=== PATIENT | male | born 1960 | race Caucasian/White ===

== ENCOUNTER → 2020-06-27 09:29 | Outpatient (CLI) | payer BC, SELFPAY ==
[2020-06-28 16:25] LABS: Covid-19 Nasal PCR Sendout Lex NOT DETECTED
== END ==
PROVIDERS: PCP Family Medicine; Visit Provider Family Medicine
DX: Z03.818 Encounter for observation for suspected exposure to other biological agents ruled out (principal)
CPT/HCPCS: U0004

== ENCOUNTER 2021-01-08 01:34 | Emergency (ER) | payer BC, SELFPAY ==
[2021-01-08 01:36] VITALS: BP 169/96; PULSE 70; RESP 16; TEMP 36.1; O2SAT 98; BMI 40.6
--- NOTE | 2021-01-08 01:51 | CT_ITS ---
PROCEDURE: CT ABDOMEN PELVIS WO CON CLINICAL INDICATION: stone protocol Left flank pain COMPARISON: No exams were available for comparison TECHNIQUE: Axial images obtained with sagittal and coronal reformats. All CT scans at the facility use one or more dose reduction, viz: automated exposure control, ma/kV adjustment per patient size (including targeted exams where dose is matched to indication, i.e. head), or iterative reconstruction technique. FINDINGS: LOWER THORAX: No acute finding ABDOMEN & PELVIS: The liver, spleen, adrenal glands, pancreas, and right kidney are unremarkable. There is moderate stranding of the left perinephric renal fat with mild left hydronephrosis and hydroureter secondary to a 3 mm stone in the distal left ureter approximately 2 cm proximal to the ureterovesical junction. There is mild stranding of the periureteral fat on the left as well. No evidence of appendicitis. No intestinal obstruction or free air. Degenerative changes lumbar spine. IMPRESSION: 3 mm left distal ureteral stone with left-sided hydroureteronephrosis and stranding of the periureteral and perinephric fat Dictated by: Mukesh Arredondo MD 01/08/2021 06:54 Mukesh Arredondo MD in [place] 01/08/2021 06:54
--- NOTE | 2021-01-08 01:59 | HMH.EDGENADL ---
ED Disposition Clinical Impression: Renal colic on left side Disposition: Home, Self-Care Condition on Discharge: Good Instructions: DI for Kidney Stones Additional Instructions: use meds and call pcp and urology this am for follow up Prescriptions: Tamsulosin HCl [Flomax 0.4mg capsule] 0.4 mg PO HS #10 cap Transmission Status: Pending to [facility]/pharmacy #[id number] Referrals: Yvette Bailon MD [Primary Care Provider] - Rylan Blair MD [Staff Physician] - - Critical Care Critical Care Time: No Attestation: On , the high probability of a clinically significant, sudden or life threatening deterioration of the following system(s) required my full and direct attention, intervention and personal management. The time I documented below is in addition to time spent performing reported procedures but includes the following listed in this critical care notation. Medical Decision Making - Medical Records Medical records reviewed: Yes: I reviewed the patient's medical records. - Ben Inquiry Pt receiving controlled substance: No Vital Signs: 01/08/21 01:36 Temperature 97.0 F L Temperature Source Oral Pulse Rate [Right] 70 Respiratory Rate 16 Blood Pressure [Right Arm] 169/96 H Blood Pressure Mean [Right Arm] 120 Blood Pressure Source [Right Arm] Automatic Cuff Blood Pressure Position [Right Arm] Sitting 02 Sat by Pulse Oximetry 98 Oxygen Delivery Method Room Air - Lab Data Lab results reviewed: Yes: I reviewed the patient's lab results. Lab Results 01/08/21 01:50: WBC 10.7, RBC 6.04, Hgb 16.7, Hct 49.8, MCV 82.6, MCH 27.7, MCHC 33.5, RDW 13.5, Plt Count 193, MPV 7.8, Neut % (Auto) 81.8 H, Lymph % (Auto) 12.9, Crane % (Auto) 4.4, Eos % (Auto) 0.6, Baso % (Auto) 0.3, Neut # (Auto) 8.7 H, Lymph # (Auto) 1.4, Crane # (Auto) 0.5, Eos # (Auto) 0.1, Baso # (Auto) 0.0 01/08/21 01:50: Sodium 141, Potassium 4.1, Chloride 108 H, Carbon Dioxide 24, Anion Gap 13.1, BUN 17, Creatinine 0.90, Estimated Creat Clear 172, Estimated GFR 87, Est GFR ( Amer) 105, Glucose 175 H, Calcium 10.1, Total Bilirubin 0.7, AST 29, ALT 29, Alkaline Phosphatase 120, Total Protein 8.0, Albumin 4.5, Globulin 3.5 H, Albumin/Globulin Ratio 1.3, Amylase 59, Lipase 139 01/08/21 01:55: Urine Color Yellow, Urine Appearance Clear, Urine pH 7.5, Ur Specific Sayner 1.025, Urine Protein Negative, Urine Glucose (UA) Negative, Urine Ketones Negative, Urine Blood 1+, Urine Nitrate Negative, Urine Bilirubin Negative, Urine Urobilinogen 0.2, Ur Leukocyte Esterase Negative, Urine RBC 10-20, Urine WBC Occasional, Ur Squamous Epith Cells 3-5, Urine Bacteria 1+ Result diagrams: 01/08/21 01:50 01/08/21 01:50 Orders (Tests/Meds): ED MEDICATIONS Generic Name Dose Route Start Last Admin Trade Name Freq PRN Reason Stop Dose Admin Sodium Chloride 1,000 mls @ 999 mls/hr 01/08/21 02:00 01/08/21 01:58 Sod Chlor 0.9% 1000ml Bag IV 01/08/21 03:00 999 mls/hr .Q1H1M MILO Administration Tamsulosin HCl 0.4 mg 01/08/21 21:00 01/08/21 03:01 Tamsulosin 0.4mg Capsule PO 02/07/21 20:59 0.4 mg HS MILO Administration Discontinued Medications Generic Name Dose Route Start Last Admin Trade Name Freq PRN Reason Stop Dose Admin Ketorolac Tromethamine 30 mg 01/08/21 01:51 01/08/21 01:58 Ketorolac 30mg/Ml Vial IV 01/08/21 01:52 30 mg ONCE ONE Administration Ondansetron HCl 4 mg 01/08/21 01:51 01/08/21 01:58 Ondansetron 4mg/2ml Vial IV 01/08/21 01:52 4 mg ONCE ONE Administration ORDERS Category Date Time Status CT abdomen pelvis wo con Stat Cat Scan 01/08/21 01:51 Taken - CT Data CT Scan: Abdomen, Pelvis Time Received: 03:[address] Reviewed: Yes: I have viewed the radiologist's interpretation Preliminary Findings: Abnormal (3 mm stone lt ) Medical Decision Narrative: doing better will give flomax anbd refer to urology General Adult HPI - General Chief complaint: PAIN Stated complaint: Left side pain with
[2021-01-08 02:00] LABS: Basophils % 0.3 % (0.1-2.0); Eosinophils # 0.1 K/mm3 (0.0-0.4); Eosinophils % 0.6 % (0.1-12.0); Hematocrit 49.8 % (42.0-52.0); Hemoglobin 16.7 g/dL (14.1-18.0); Lymphocytes # 1.4 K/mm3 (0.7-4.5); Lymphocytes % 12.9 % (10-50); Mean Corpuscular HGB Conc 33.5 g/dL (31.8-35.4); Mean Corpuscular Hemoglobin 27.7 pg (27.0-31.2); Mean Corpuscular Volume 82.6 fl (80-94); Mean Platelet Volume 7.8 fl (7.4-10.4); Monocytes # 0.5 K/mm3 (0.1-1.0); Monocytes % 4.4 % (1.7-9.3); Neutrophils # 8.7 K/mm3 (1.8-7.8); Neutrophils % 81.8 % (37.0-80.0); Platelet Count 193 K/mm3 (142-424); Red Blood Count 6.04 M/mm3 (4.60-6.20); Red Cell Distribution Width 13.5 % (11.5-17.5); White Blood Count 10.7 K/mm3 (4.8-10.8)
[2021-01-08 02:01] LABS: Microscopic, Urine URINE MICROSCOPIC (MICROSCOPIC)
[2021-01-08 02:03] LABS: Appearance,Urine CLEAR (Clear); Bilirubin,Urine Negative (Negative); Blood, Urine 1+ (Negative); Color,Urine YELLOW (Yellow); Glucose,Urine (UA) Negative (Negative); Ketones,Urine Negative (Negative); Leukocyte Esterase,Urine Negative (Negative); Nitrate,Urine Negative (Negative); PH,Urine 7.5 (5.0-8.5); Protein,Urine Negative (Negative); Specific Gravity, Urine 1.025 (1.005-1.030); Urobilinogen,Urine 0.2 EU/dl (0.2)
[2021-01-08 02:05] LABS: Chloride 108 mmol/L (98-107); Potassium 4.1 mmoL/L (3.5-5.1); Sodium 141 mmol/L (136-145)
[2021-01-08 02:07] LABS: Amylase 59 U/L (30-110); Blood Urea Nitrogen 17 mg/dl (9-20); Creatinine Clearance Estimated 172 mL/min (50-200); Estimated Glomerular Filt Rate 87 ml/min (>60); GFR (African American) 105 ML/MIN (>60)
[2021-01-08 02:08] LABS: Alanine Aminotransferase 29 U/L (12-78); Albumin Level 4.5 g/dl (3.5-5.0); Albumin/Globulin Ratio 1.3 (1.1-1.8); Alkaline Phosphatase 120 U/L (38-126); Anion Gap 13.1 mEq/L (5-15); Aspartate Amino Transferase 29 U/L (17-59); Bilirubin,Total 0.7 mg/dl (0.2-1.3); Calcium 10.1 mg/dl (8.4-10.2); Carbon Dioxide 24 mmol/L (22.0-30.0); Globulin 3.5 g/dL (1.3-3.2); Glucose 175 mg/dl (74-100); Lipase 139 U/L (23-300)
[2021-01-08 02:16] LABS: WBC,Urine Occasional #/hpf (0-3)
[2021-01-08 02:17] LABS: Bacteria,Urine 1+ /lpf
[2021-01-08 03:13] VITALS: BP 150/70; PULSE 80; RESP 16; TEMP 36.6; O2SAT 98
== END 2021-01-08 03:14 | disposition home or self-care (01) ==
PROVIDERS: Emergency Provider Emergency Medicine; PCP Family Medicine
DX: N23 Unspecified renal colic (principal)
CPT/HCPCS: 74176; 80053; 81001; 82150; 83690; 85025; 96365; 96375; 99282; J2405

== ENCOUNTER 2021-01-09 19:42 | Emergency (ER) | payer BC, SELFPAY ==
[2021-01-09 19:44] VITALS: BP 116/56; PULSE 72; RESP 16; TEMP 36.9; O2SAT 95; BMI 24.9
--- NOTE | 2021-01-09 20:10 | CT_ITS ---
PROCEDURE: CT ABDOMEN PELVIS WO CON CLINICAL INDICATION: lt flank pain COMPARISON: CT CT ABDOMEN PELVIS WO CON from 01/08/2021 TECHNIQUE: Axial images obtained with sagittal and coronal reformats. All CT scans at the facility use one or more dose reduction, viz: automated exposure control, ma/kV adjustment per patient size (including targeted exams where dose is matched to indication, i.e. head), or iterative reconstruction technique. FINDINGS: LOWER THORAX: Liver, gallbladder, adrenal glands, and pancreas have an unremarkable unenhanced appearance as does the right kidney. There is splenomegaly at 16 cm. There is mild left hydronephrosis and hydroureter secondary to a 3 mm left distal ureteral stone 1-2 cm proximal to the ureterovesical junction. There is mild stranding of the left periureteral fat and perinephric fat. No evidence of appendicitis intestinal obstruction or free air. Urinary bladder wall is somewhat thickened. The prostate is prominent at 5 cm. Coarse prostate calcifications are noted. There is a circular soft tissue density with central fatty density in the left pelvic region may be related to a lymph node unchanged. There are degenerative changes in the lumbar spine with osteophytosis. IMPRESSION: No change in the obstructing 3 mm distal left ureteral stone with stranding of the left perinephric and periureteral fat. The stranding of the fat in the retroperitoneum may be slightly worse. Dictated by: Mukesh Arredondo MD 01/10/2021 06:49 Mukesh Arredondo MD in [place] 01/10/2021 06:49
[2021-01-09 20:17] LABS: Microscopic, Urine URINE MICROSCOPIC (MICROSCOPIC)
[2021-01-09 20:18] LABS: Appearance,Urine CLEAR (Clear); Bilirubin,Urine Negative (Negative); Blood, Urine 3+ (Negative); Color,Urine YELLOW (Yellow); Glucose,Urine (UA) Negative (Negative); Ketones,Urine Negative (Negative); Leukocyte Esterase,Urine Negative (Negative); Nitrate,Urine Negative (Negative); Protein,Urine Negative (Negative); Specific Gravity, Urine >= 1.030 (1.005-1.030); Urobilinogen,Urine 0.2 EU/dl (0.2)
[2021-01-09 20:20] LABS: Basophils # 0.1 K/mm3 (0-0.2); Basophils % 0.7 % (0.1-2.0); Eosinophils # 0.1 K/mm3 (0.0-0.4); Eosinophils % 1.4 % (0.1-12.0); Hematocrit 49.3 % (42.0-52.0); Hemoglobin 16.3 g/dL (14.1-18.0); Lymphocytes % 22.2 % (10-50); Mean Corpuscular HGB Conc 33.1 g/dL (31.8-35.4); Mean Corpuscular Hemoglobin 28.5 pg (27.0-31.2); Mean Corpuscular Volume 86.1 fl (80-94); Mean Platelet Volume 7.8 fl (7.4-10.4); Monocytes # 0.7 K/mm3 (0.1-1.0); Neutrophils # 6.2 K/mm3 (1.8-7.8); Neutrophils % 67.8 % (37.0-80.0); Platelet Count 203 K/mm3 (142-424); Red Blood Count 5.72 M/mm3 (4.60-6.20); Red Cell Distribution Width 13.7 % (11.5-17.5); White Blood Count 9.1 K/mm3 (4.8-10.8)
--- NOTE | 2021-01-09 20:24 | HMH.EDGENADL ---
ED Disposition Clinical Impression: Renal colic on left side Disposition: Home, Self-Care Condition on Discharge: Good Instructions: DI for Kidney Stones Additional Instructions: fluids and see dr barrett tomorrow Prescriptions: levoFLOXacin [Levaquin 500mg tab] 500 mg PO DAILY #7 tab Transmission Status: Pending to [facility]/pharmacy #[id number] Referrals: Yvette Bailon MD [Primary Care Provider] - Rylan Barrett MD [Staff Physician] - - Critical Care Critical Care Time: No Attestation: On 01/09/21, the high probability of a clinically significant, sudden or life threatening deterioration of the following system(s) required my full and direct attention, intervention and personal management. The time I documented below is in addition to time spent performing reported procedures but includes the following listed in this critical care notation. Medical Decision Making - Medical Records Medical records reviewed: Yes: I reviewed the patient's medical records. - Ben Inquiry Pt receiving controlled substance: No Vital Signs: 01/09/21 19:44 Temperature 98.5 F Temperature Source Oral Pulse Rate [Right] 72 Respiratory Rate 16 Blood Pressure [Right Arm] 116/56 L Blood Pressure Mean [Right Arm] 76 02 Sat by Pulse Oximetry 95 Oxygen Delivery Method Room Air - Lab Data Lab results reviewed: Yes: I reviewed the patient's lab results. Lab Results 01/09/21 20:05: WBC 9.1, RBC 5.72, Hgb 16.3, Hct 49.3, MCV 86.1, MCH 28.5, MCHC 33.1, RDW 13.7, Plt Count 203, MPV 7.8, Neut % (Auto) 67.8, Lymph % (Auto) 22.2, Kidder % (Auto) 8.0, Eos % (Auto) 1.4, Baso % (Auto) 0.7, Neut # (Auto) 6.2, Lymph # (Auto) 2.0, Kidder # (Auto) 0.7, Eos # (Auto) 0.1, Baso # (Auto) 0.1, ESR 57 H 01/09/21 20:05: Sodium 139, Potassium 4.0, Chloride 104, Carbon Dioxide 27, Anion Gap 12.0, BUN 20, Creatinine 1.00, Estimated Creat Clear 95, Estimated GFR 77, Est GFR ( Amer) 93, Glucose 129 H, Calcium 9.4, Total Bilirubin 0.9, AST 28, ALT 21 D, Alkaline Phosphatase 91, C-Reactive Protein 60.3 H, Total Protein 7.7, Albumin 4.3, Globulin 3.4 H, Albumin/Globulin Ratio 1.3, Procalcitonin 0.096 01/09/21 20:05: Urine Color Yellow, Urine Appearance Clear, Urine pH 6.0, Ur Specific [place] >= 1.030, Urine Protein Negative, Urine Glucose (UA) Negative, Urine Ketones Negative, Urine Blood 3+, Urine Nitrate Negative, Urine Bilirubin Negative, Urine Urobilinogen 0.2, Ur Leukocyte Esterase Negative, Urine RBC 5-10, Urine WBC Occasional, Urine Bacteria 1+ Result diagrams: 01/09/21 20:05 01/09/21 20:05 Orders (Tests/Meds): ED MEDICATIONS Generic Name Dose Route Start Last Admin Trade Name Freq PRN Reason Stop Dose Admin Sodium Chloride 1,000 mls @ 999 mls/hr 01/09/21 20:15 01/09/21 20:16 Sod Chlor 0.9% 1000ml Bag IV 01/09/21 21:15 999 mls/hr .Q1H1M MILO Administration Discontinued Medications Generic Name Dose Route Start Last Admin Trade Name Freq PRN Reason Stop Dose Admin Sodium Chloride 500 mls @ 999 mls/hr 01/09/21 20:15 01/09/21 20:16 Sod Chlor 0.9% 1000ml Bag IV 01/09/21 20:45 Not Given .Q31M [facility] Ketorolac Tromethamine 30 mg 01/09/21 20:12 01/09/21 20:14 Ketorolac 30mg/Ml Vial IV 01/09/21 20:13 30 mg ONCE ONE Administration Ondansetron HCl 4 mg 01/09/21 20:12 01/09/21 20:14 Ondansetron 4mg/2ml Vial IV 01/09/21 20:13 4 mg ONCE ONE Administration ORDERS Category Date Time Status CT abdomen pelvis wo con Stat Cat Scan 01/09/21 20:10 Taken - CT Data CT Scan: Abdomen, Pelvis Time Received: 21:[address] Reviewed: Yes: I have viewed the radiologist's interpretation Preliminary Findings: Abnormal (5 mm stone on lt ) - Physician Consults Physician Consulted: arnold Reason -: Pt condition General Adult HPI - General Chief complaint: PAIN Stated complaint: possible kidney stone Time Seen by Provider: 01/09/21 20:05 Mode of Arrival: Ambulatory Source of Information: Patient, Spouse, Medic
[2021-01-09 20:43] LABS: Alanine Aminotransferase 21 U/L (12-78); Albumin Level 4.3 g/dl (3.5-5.0); Albumin/Globulin Ratio 1.3 (1.1-1.8); Alkaline Phosphatase 91 U/L (38-126); Aspartate Amino Transferase 28 U/L (17-59); Bilirubin,Total 0.9 mg/dl (0.2-1.3); Blood Urea Nitrogen 20 mg/dl (9-20); Calcium 9.4 mg/dl (8.4-10.2); Carbon Dioxide 27 mmol/L (22.0-30.0); Chloride 104 mmol/L (98-107); Creatinine Clearance Estimated 95 mL/min (50-200); Estimated Glomerular Filt Rate 77 ml/min (>60); GFR (African American) 93 ML/MIN (>60); Globulin 3.4 g/dL (1.3-3.2); Glucose 129 mg/dl (74-100); Sodium 139 mmol/L (136-145); Total Protein,Serum 7.7 g/dl (6.3-8.2)
[2021-01-09 20:48] LABS: C-Reactive Protein 60.3 mg/L (0-4)
[2021-01-09 21:02] LABS: Procalcitonin 0.096 ng/mL (0.0-2.0)
[2021-01-09 21:03] LABS: Erythrocyte Sedimentation Rate 57 mm/hr (0-20)
[2021-01-09 21:17] LABS: Bacteria,Urine 1+ /lpf; WBC,Urine Occasional #/hpf (0-3)
[2021-01-09 22:00] VITALS: BP 124/74; PULSE 79; RESP 14; TEMP 36.7; O2SAT 97
== END 2021-01-09 22:03 | disposition home or self-care (01) ==
PROVIDERS: Emergency Provider Emergency Medicine; PCP Family Medicine
DX: N23 Unspecified renal colic (principal)
CPT/HCPCS: 74176; 80053; 81001; 84145; 85025; 85651; 86140; 96375; 99283; J2405

== ENCOUNTER → 2021-01-12 13:27 | Outpatient (CLI) | payer BC, SELFPAY | PROVIDERS: PCP Family Medicine; Visit Provider Urology | DX: Z01.818 Encounter for other preprocedural examination (principal); Z20.822 Contact with and (suspected) exposure to COVID-19; N20.0 Calculus of kidney | CPT/HCPCS: U0003 ==

== ENCOUNTER 2021-01-14 11:32 | Day surgery (SDC) | payer BC, SELFPAY ==
[2021-01-11 15:25] VITALS: BMI 45.3
[2021-01-14] VITALS (8 sets, daily range): BP systolic 113–153; BP diastolic 76–88; PULSE 77–93; RESP 12–18; TEMP 36.1–36.8; O2SAT 93–95
[2021-01-14 13:36] LABS: POC Glucose,Bedside 102 (70-110)
--- NOTE | 2021-01-14 14:35 | FL_ITS ---
PROCEDURE: FL URETHROCYSTOGRAM RETRO CLINICAL INDICATION: C-ARM USED FOR LEFT URETEROSCOPY COMPARISON: No exams were available for comparison FINDINGS: Fluoroscopy time: 2 minutes and 9 seconds. Multiple images are submitted during stone extraction and stent placement. IMPRESSION: Status post left-sided stone extraction and stent placement with fluoroscopic guidance Dictated by: Mukesh Arredondo MD 01/15/2021 08:52 Mukesh Arredondo MD in [place] 01/15/2021 08:52
--- NOTE | 2021-01-14 14:41 | P.PN_ITS ---
[facility] Anesthesia Checklist - Patient Identification Patient Identification: Arm Band - Structural Data Admitted From: Home Planned Operative Procedure/s: Ureteroscopy Consent for Planned Operative Procedure(s) Verified: Yes - Additional verifications Anesthesia Reactions: No Hx Blood Transfusions: No Blood Transfusion Reaction: No - Airway Assessment C-Spine Mobility Assessed: Yes TMJ Mobility Assessed: Yes Dentition: Good Dentition - Neurological Assessment Level of Consciousness: Awake, Alert Hx Seizures: No Numbness or tingling in extremities: No - Anesthesia Plan Anesthesia Risk discussed: Yes Anesthesia Plan: Verified ASA Class: II Anesthesia Type: General [facility] History I have reviewed the patient's past medical history: Yes Medical History: Reports:: Diabetes Mellitus Type 2, Kidney Stones Denies:: Cancer, Diabetes Mellitus Type 1, Internal Pacemaker, MRSA, Seizures *Have you ever received a pneumonia vaccine?: No *Have you received a flu vaccine this season?: No Other Medical History: Denies: Blood Transfusion Reaction Anesthesia experience/problems:: None Laterality Cases: Left: Total Knee Replacement Other Surgeries: Yes: No Previous Surgery, Colonoscopy. No: Pacemaker Amputation: No Fractures: No - *Social History Last grade of school completed: High school graduate Smoking Status: Never smoker Alcohol Intake: never Substance Use Type: denies use *Occupational Status:: employed Housing: house Household Members: none *Travel in the last 8 weeks: None Family Hx:: No significant family history
--- NOTE | 2021-01-14 16:55 | HMH.ANESI ---
[facility] Anesthesia Record Part I Intake, IV Amount: 900 Estimated blood loss (mL): 0 Urine output (mL): 0 Blood Pressure: 113/78 SaO2: 93 Pulse Rate: 80 Respiratory Rate: 16 Temperature: 98.2 F Patient is:: Drowsy, Stable Stable to PACU at:: 16:52
--- NOTE | 2021-01-14 17:13 | HMH.OPNOTE ---
Date of procedure: 01/14/21 Pre-op Diagnosis:: Left distal ureteral stone Post-op Diagnosis:: Left distal ureteral stone obstruction/ureteral stenosis Procedure performed:: Left ureteroscopy, laser lithotripsy of stone, stone extraction and left stent placement Surgeon:: Rylan Blair MD OWNER/PHOTOGRAPHER:: Other (Thuri) Anesthesia: GETA Estimated blood loss (mL): 0 Clinical Note:: Patient is a 60-year-old white male with history of 3 mm distal left ureteral stone. He is required to emergency room visit last week. Since then he has been straining his urine and pushing fluids and is not had much pain but has not passed the stone. He presents for urologic management. Operative findings:: 3 mm distal ureteral stone that was not well seen on fluoroscopy, there was ureteral stenosis at the level of the stone and laser lithotripsy had to be performed to extract the stone. Operative note:: Patient taken to the operating room after informed consent was obtained. He was placed on the operating table in the supine position and general anesthesia administered. Preoperative antibiotics and sequential compression devices placed. He was then placed into the dorsal lithotomy position prepped and draped in the standard surgical fashion. 22 Anthony passed into the urethra and into the bladder without difficulty. The bladder was examined in a systematic fashion. There there was no evidence of mucosal abnormalities, stones, trabeculation or diverticula. The ureteral orifices were in their normal anatomic position. Clear efflux was seen from the right side but no efflux was seen from the left. A 0.035 guidewire passed into the left ureteral orifice and into the renal pelvis without difficulty. Our flexible ureteroscope was then passed over the guidewire but there was resistance met in the distal ureter. The stone was noted in the distal ureter but it was not visualized on fluoroscopy. The flex ureteroscope then removed and the semirigid ureteroscope passed into the left bladder and into the left ureter and up to the level of the stone. Stone basket was attempted to be passed by the stone but there is very little room and I cannot pass the wire by the stone. We have been used the 200 nm laser fiber at a setting of 10 and 1 and broke the stone up into small fragments. The small fragments were then removed with a 2.4 Finnish nitinol stone basket. Looking back into the ureter there was a stenotic segment at the level where the stone was stopped. Decided to go ahead and place a stent for dilation of the stenosis. The ureteroscope was removed and the cystoscope was replaced the wire backloaded over the scope. A 4.8 x 26 Finnish stent was then passed over the guidewire and the wire removed with a good curl noted proximally and distally. The string was left on for later removal. Patient tolerated the procedure well there are no complications. Condition: stable Disposition: PACU Specimens:: Stone fragment Complications:: None
--- NOTE | 2021-01-14 17:44 | P.PN_ITS ---
[facility] Anesthesia Record Part II Discharge Time: 17:12 Destination: Surgical Day Care (OP Surgery) PACU nurse assessment reviewed?: Yes Patient Condition:: Good Anesthesia Complications:: None Swallowing reflex intact?: Yes Cyanosis?: No Blood Pressure: 141/77 Pulse Rate: 77 Temperature: 98.2 F Mental Status: Alert & Oriented Pain level:: 0 Nausea and/or vomitting:: None Intake, IV Amount: 800
== END 2021-01-14 17:45 | disposition home or self-care (01) ==
LOC: OR 11:34
PROVIDERS: PCP Family Medicine; Visit Provider Urology
PROC: (CPT 52352; principal; 2021-01-14 12:45)
DX: N20.1 Calculus of ureter (principal); E11.9 Type 2 diabetes mellitus without complications; Z96.652 Presence of left artificial knee joint; Z79.84 Long term (current) use of oral hypoglycemic drugs; Z79.899 Other long term (current) drug therapy
CPT/HCPCS: 50590; 50945; 74450; 76000; 82962; 96374; C2617

== ENCOUNTER → 2021-08-20 09:21 | Outpatient (CLI) | payer BC, SELFPAY | PROVIDERS: Visit Provider Surgery | DX: Z01.812 Encounter for preprocedural laboratory examination (principal); Z11.52 Encounter for screening for COVID-19; Z12.11 Encounter for screening for malignant neoplasm of colon | CPT/HCPCS: C9803; U0003; U0005 ==

== ENCOUNTER 2021-08-22 06:43 | Day surgery (SDC) | payer BC, SELFPAY ==
[2021-08-19 10:03] VITALS: BMI 47.4
[2021-08-22 07:01] VITALS: BP 146/82; PULSE 77; RESP 18; TEMP 36.3; O2SAT 97
[2021-08-22 07:11] LABS: POC Glucose,Bedside 118 (70-110)
--- NOTE | 2021-08-22 07:18 | P.PN_ITS ---
[facility] Anesthesia Checklist - Structural Data Admitted From: Home Planned Operative Procedure/s: colonoscopy Consent for Planned Operative Procedure(s) Verified: Yes - Additional verifications Anesthesia Reactions: No Hx Blood Transfusions: No Blood Transfusion Reaction: No - Airway Assessment C-Spine Mobility Assessed: Yes TMJ Mobility Assessed: Yes Dentition: Good Dentition - Neurological Assessment Level of Consciousness: Awake, Alert, Appropriate - Anesthesia Plan Anesthesia Risk discussed: Yes Anesthesia Plan: Verified ASA Class: III Anesthesia Type: MAC [facility] History I have reviewed the patient's past medical history: Yes Medical History: Reports:: Diabetes Mellitus Type 2, Hyperlipidemia, Hypertension, Kidney Stones, MRSA (4 years ago) Denies:: Cancer, Diabetes Mellitus Type 1, Internal Pacemaker, Seizures *Have you ever received a pneumonia vaccine?: No *Have you received a flu vaccine this season?: No Other Medical History: Denies: Blood Transfusion Reaction Anesthesia experience/problems:: none Laterality Cases: Left: Total Knee Replacement Other Surgeries: Yes: No Previous Surgery, Colonoscopy. No: Pacemaker Amputation: No Fractures: No - *Social History Last grade of school completed: High school graduate Smoking Status: Never smoker Alcohol Intake: never Substance Use Type: denies use *Occupational Status:: employed Housing: house Household Members: none *Travel in the last 8 weeks: None Family Hx:: Cancer, Heart Attack
[2021-08-22 08:35] VITALS: BP 123/77; PULSE 82; RESP 16; TEMP 36.4; O2SAT 93
[2021-08-22 08:45] VITALS: BP 125/71; PULSE 66; RESP 16; O2SAT 93
--- NOTE | 2021-08-22 08:46 | HMH.SCOPE ---
- Procedure: Date: 08/22/21 Patient Date of :: 1960 Procedure Performed:: Colonoscopy with polypectomy Indications:: History of polyps Performing Provider:: Robert Anderson MD Referring Provider:: . Sedation:: Monitored anesthesia care Procedure:: After informed consent was obtained the patient was taken to the endoscopy suite. Sedation ensued after the patient was transferred to the left lateral decubitus position. Pulse, blood pressure, and oxygen saturation were monitored throughout the procedure. Digital rectal exam revealed no significant abnormality. The colonoscope was placed in position. The entire colon was evaluated. The colonoscope was carefully removed and the patient was transferred to recovery in stable condition. Please see findings and specimens below for detail. Findings:: Bowel preparation moderate to poor Hemorrhoidal tags and cushions (moderate) Profound lack of relaxation/spasticity Polyps (see specimens) Specimens:: Lobulated ileocecal valve biopsy Right colon polyp Adjacent hepatic flexure polyps (cold snare) Polyp at 60 cm Recommendations:: Timing of repeat colonoscopy is pending pathology will likely be around 2 years secondary to history of multiple polyps, moderate to poor bowel preparation, and severe spasticity/lack of relaxation. Complications:: No immediate Estimated blood obtained (mL): 1
[2021-08-22 08:56] VITALS: BP 114/77; PULSE 66; RESP 16; O2SAT 95
[2021-08-22 09:09] VITALS: BP 122/79; PULSE 67; RESP 16; O2SAT 98
[2021-08-22 09:53] VITALS: O2SAT 95
== END 2021-08-22 09:11 | disposition home or self-care (01) ==
LOC: OUTP 06:46
PROVIDERS: PCP Family Medicine; Visit Provider Surgery
PROC: 0DJD8ZZ Inspection of Lower Intestinal Tract, Via Natural or Artificial Opening Endoscopic (ICD-10-PCS; CPT 45385; principal; 2021-08-22 07:30)
DX: Z12.11 Encounter for screening for malignant neoplasm of colon (principal); K58.9 Irritable bowel syndrome, unspecified; K64.9 Unspecified hemorrhoids; K63.5 Polyp of colon; Z86.010 Personal history of colon polyps; E11.9 Type 2 diabetes mellitus without complications; E78.5 Hyperlipidemia, unspecified; I10 Essential (primary) hypertension; Z87.442 Personal history of urinary calculi; Z86.14 Personal history of Methicillin resistant Staphylococcus aureus infection; Z80.9 Family history of malignant neoplasm, unspecified; Z82.49 Family history of ischemic heart disease and other diseases of the circulatory system; Z79.899 Other long term (current) drug therapy
CPT/HCPCS: 45385; 45380; 82962

== ENCOUNTER → 2022-03-10 14:26 | Outpatient (CLI) | payer BC, SELFPAY | PROVIDERS: PCP Family Medicine; Visit Provider Nurse Practitioner Family | DX: Z11.52 Encounter for screening for COVID-19 (principal); R05.1 Acute cough | CPT/HCPCS: C9803; U0003; U0005 ==

== ENCOUNTER → 2022-04-03 13:24 | Outpatient (CLI) | payer BC, SELFPAY ==
--- NOTE | 2022-04-03 13:38 | XR_ITS ---
FINAL REPORT CLINICAL HISTORY: COUGH FINDINGS: Two views of the chest were obtained. The heart size and pulmonary vascularity are within normal limits. The mediastinum is normal. No acute pulmonary abnormality is identified. There is no pneumothorax. The bony thorax is intact. IMPRESSION: No active cardiopulmonary disease. Reviewed, Interpreted and Dictated by Filemon Colin III, MD Transcribed by Maureen Simmons Authenticated and [facility]
[2022-04-03 14:38] LABS: Basophils # 0.1 K/mm3 (0-0.2); Basophils % 1.8 % (0.1-2.0); Eosinophils # 0.1 K/mm3 (0.0-0.4); Eosinophils % 1.9 % (0.1-12.0); Hematocrit 50.5 % (42.0-52.0); Hemoglobin 16.8 g/dL (14.1-18.0); Lymphocytes # 1.7 K/mm3 (0.7-4.5); Lymphocytes % 28.7 % (10-50); Mean Corpuscular HGB Conc 33.3 g/dL (31.8-35.4); Mean Corpuscular Hemoglobin 28.2 pg (27.0-31.2); Mean Corpuscular Volume 84.8 fl (80-94); Monocytes # 0.3 K/mm3 (0.1-1.0); Monocytes % 5.5 % (1.7-9.3); Neutrophils # 3.6 K/mm3 (1.8-7.8); Neutrophils % 62.1 % (37.0-80.0); Platelet Count 215 K/mm3 (142-424); Red Blood Count 5.95 M/mm3 (4.60-6.20); Red Cell Distribution Width 14.1 % (11.5-17.5); White Blood Count 5.8 K/mm3 (4.8-10.8)
[2022-04-03 15:12] LABS: NT Pro Brain Natriuretic Pep. 151 pg/mL (0-125)
== END ==
LOC: RAD 13:26
PROVIDERS: PCP Family Medicine; Visit Provider Nurse Practitioner Family
DX: R06.02 Shortness of breath (principal); R05.1 Acute cough
CPT/HCPCS: 36415; 71046; 83880; 85025

== ENCOUNTER → 2022-04-17 09:29 | Outpatient (CLI) | payer BC, SELFPAY ==
--- NOTE | 2022-04-17 10:00 | PC.NURSE ---
Pre and Post PFT completed without incident. Albuterol 0.083% given via HHN, pt tolerated tx well. Pt tolerated procedure well.
== END ==
PROVIDERS: PCP Family Medicine; Visit Provider Nurse Practitioner Family
DX: R05.1 Acute cough (principal)
CPT/HCPCS: 94060

== ENCOUNTER → 2022-07-24 11:58 | Outpatient (CLI) | payer BC, SELFPAY | PROVIDERS: PCP Family Medicine; Visit Provider Nurse Practitioner Family | DX: R51.9 Headache, unspecified (principal); R11.2 Nausea with vomiting, unspecified | CPT/HCPCS: C9803; U0003; U0005 ==

== ENCOUNTER 2024-04-20 11:49 | Outpatient (CLI) | payer OTHER, SELFPAY ==
--- NOTE | 2024-04-20 11:56 | XR_ITS ---
FINAL REPORT CLINICAL HISTORY: ABDOMINAL FLAT AND UPRIGHT XRAY. FOR RT UPPER QUAD ABD PAIN COMPARISON: None FINDINGS: Two views of the abdomen demonstrate the visualized intestinal gas pattern appears unremarkable without evidence to suggest obstruction. No abnormal radiopacities are seen in the abdomen. IMPRESSION: No acute findings. Reviewed, Interpreted and Dictated by Armond Gomez MD Transcribed by Shannan Nicole Authenticated and [facility]
== END 2024-04-20 23:59 | disposition home or self-care (01) ==
PROVIDERS: PCP Family Medicine; Visit Provider Family Medicine
DX: R10.11 Right upper quadrant pain (principal)
CPT/HCPCS: 74019

== ENCOUNTER 2024-07-14 13:18 | Emergency (ER) | payer OTHER, SELFPAY ==
[2024-07-14 13:39] VITALS: BP 171/92; PULSE 84; RESP 16; TEMP 36.6; O2SAT 96; BMI 46.0
--- NOTE | 2024-07-14 13:56 | XR_ITS ---
FINAL REPORT CLINICAL HISTORY: fall, right hip pain COMPARISON: None FINDINGS: RIGHT HIP Two views of the right hip demonstrate no acute fracture or dislocation. The joint spaces appear normal. The visualized bony structures are well aligned. No soft tissue abnormality is seen. IMPRESSION: No acute bony abnormality. Reviewed, Interpreted and Dictated by Filemon Colin III, MD Transcribed by Simin Edmond Authenticated and [facility]
--- NOTE | 2024-07-14 13:56 | XR_ITS ---
FINAL REPORT CLINICAL HISTORY: fall, right upper leg pain COMPARISON: None FINDINGS: RIGHT FEMUR: 2 views of the right femur failed to reveal any evidence of acute fracture or dislocation. There is moderate to severe degenerative change involving the right knee. IMPRESSION: No acute bony abnormality identified. Moderate to severe right knee degenerative change. Reviewed, Interpreted and Dictated by Filemon Colin III, MD Transcribed by Simin Edmond Authenticated and [facility]
--- NOTE | 2024-07-14 13:56 | XR_ITS ---
FINAL REPORT CLINICAL HISTORY: fall, rigth knee pain and swelling COMPARISON: None FINDINGS: Three views of the right knee reveal no evidence of fracture or dislocation. There is moderate to severe degenerative change noted in the right knee, with severe narrowing of the lateral and patellofemoral compartments. There is no evidence of joint effusion. No localized soft tissue abnormality is identified. IMPRESSION: No acute abnormality identified. Moderate to severe degenerative change with severe narrowing of the lateral and patellofemoral compartments. Reviewed, Interpreted and Dictated by Filemon Colin III, MD Transcribed by Simin Edmond Authenticated and [facility]
--- NOTE | 2024-07-14 13:58 | EXP.UTC ---
Discharge Plan Disposition Patient Disposition: Home, Self-Care Condition: Good Prescriptions Prescriptions: No Action simvastatin 40 mg tablet 40 mg PO DAILY metformin 500 mg tablet 500 mg PO DAILY fluoxetine 40 MG capsule 40 mg PO DAILY levothyroxine 88 MCG tablet 88 mcg PO DAILY ropinirole 1 MG tablet 1 mg PO DAILY Referrals Follow up/Referrals: Yvette Bailon MD [Primary Care Provider] - See instructions Jace Charles DO [Staff Physician] - See instructions Activity Restrictions/Add. Instructions Additional Instructions/Restrictions: Rest the extremity, apply ice for 15 minutes as tolerated three or four times per day, Elevate the extremity as tolerated while you are resting. Take tylenol or ibuprofen for pain. Follow up with Dr. Charles (orthopedics) if you continue to have symptoms. I put in a referral but you need to call his office and schedule an appointment. Follow up with your regular doctor. Keep the appointment there that you have scheduled tomorrrow so they can recheck your knee. GO TO THE ER FOR ANY WORSENING SYMPTOMS Clinical Impressions Clinical Impression: Right knee sprain Instructions Patient Instructions: DI for Knee Sprain, How to Use a Knee Immobilizer Print Language Print Language: Emirati Discharge ED Provider: Fran Slater [facility] General Stated complaint: R knee pain ao 07/12 Mode of Arrival: Ambulatory Source of Information: Patient Limitations: No Limitations Time Seen by Provider: 07/14/24 13:58 Description of Symptoms (Recalled from Triage Doc. by RN): Reports falling 2 days ago injuring his right knee. HEENT Symptoms (Recalled from RN notes): No Resp Symptoms (Recalled from RN notes): No Skin Symptoms (Recalled from RN notes): No MS Symptoms (Recalled from RN notes): Yes Functional Status (Recalled from RN notes): wnl History of Present Illness Provider Complaint: He states that he fell yesterday. When he came down his right knee and right hip absorbed most of the impact. He denies other complaints or injuries. Related Data Home Medications ?Medication ?Instructions ?Recorded ?Confirmed metformin 500 mg tablet 500 mg PO DAILY Diabetes 01/10/21 09/04/21 simvastatin 40 mg tablet 40 mg PO DAILY Cholesterol 01/10/21 09/04/21 fluoxetine 40 mg capsule 40 mg PO DAILY Depression 01/11/21 09/04/21 levothyroxine 88 mcg tablet 88 mcg PO DAILY thyroid 01/11/21 09/04/21 ropinirole 1 mg tablet 1 mg PO DAILY muscle relaxer 08/19/21 09/04/21 Allergies Allergy/AdvReac Type Severity Reaction Status Date / Time No Known Allergies Allergy Verified 09/04/21 10:09 Worker's Comp Is this a Worker's Comp case?: No [facility] Disclaimer: The information contained in this section may have been updated after the patient was seen, as this information can be updated by other users. Social History Smoking Status: Never smoker second hand exposure: No alcohol intake: never substance use type: denies use current occupational status: employed Travel in the last 8 weeks: None household members: none housing: house current occupation: [employer] current occupational exposures/hazards: No caffeine: Yes ROS Obtained: Yes All systems reviewed & no additional complaints except as documented Constitutional Constitutional: Denies chills and Denies fever(s) Eyes Eyes: Denies eye discharge ENT Ears, Nose, Mouth, and Throat: Denies dizziness, Denies otalgia and Denies sore throat Cardiovascular Cardiovascular: Denies chest pain Respiratory Respiratory: Denies shortness of breath, Denies chest congestion, Denies cough, Denies stridor and Denies wheezing Gastrointestinal Gastrointestingal: Denies nausea or vomiting Musculoskeletal Musculoskeletal: Reports system reviewed and no additional complaints, except as documented and Denies arthralgias Integumentary/Breasts Skin/Breast: Denies rash Neurologic Neurologic: Denies dizziness and Denies paresthesias Allergic/Immunologic Allergic/Immunologic: Denies wheezing Physical Exam General General appearance: alert and in no apparent distress Head Head exam: atraumatic, normocephalic and normal inspection Eye Eye exam: Present normal appearance, PERRL and EOMI ENT ENT exam: Present normal exam, normal oropharynx, mucous membranes moist, TM's normal bilaterally and normal external ear exam Neck Neck exam: Present normal inspection, full ROM and trachea midline; Absent meningismus or lymphadenopathy Chest Chest inspection: Present normal inspection and symmetric chest wall rise; Absent tenderness Respiratory Respiratory exam: Present normal lung sounds bilaterally; Absent respiratory distress Cardiovascular Cardiovascular exam: Present regular rate and normal rhythm; Absent JVD Abdominal Exam Abdominal exam: Present soft and normal bowel sounds; Absent distention, tenderness or guarding Extremities Exam Extremities exam: Present normal capillary refill; Absent calf tenderness Expanded Lower Extremity Exam Right: Hip/Pelvis exam: Present full ROM, tenderness and pelvis stable; Absent swelling, ecchymosis, deformity, dislocation, external rotation, internal rotation, shortening of leg, pain on hip/pelvis palpation, hip pain on leg movement, erythema, crepitus, laceration or abrasion Upper leg exam: Present full ROM and tenderness; Absent swelling, abrasion, laceration, ecchymosis, deformity, crepitus, dislocation or erythema Knee exam: Present full ROM, tenderness, swelling and effusion; Absent abrasion, laceration, ecchymosis, deformity, crepitus, dislocation, erythema, anterior drawer sign, posterior draw sign, pain with valgus, laxity with valgus, pain with varus, laxity with varus or knee extension intact Lower leg exam: Present normal inspection, full ROM and Achilles tendon intact; Absent tenderness or Homans' sign Ankle exam: Present normal inspection and full ROM; Absent tenderness Foot/toe exam: Present normal inspection and full ROM; Absent tenderness Neurovascular/Tendon exam: Present normal capillary refill, normal 2-point discrimination and normal fine/light touch; Absent pulse deficit, motor deficit, sensory deficit, tendon deficit, extremity cold to touch or pallor Gait: observed and normal Back Exam Back exam: Present normal inspection; Absent tenderness Neurological Exam Neurological exam: Present alert and oriented X3 Psychiatric Psychiatric exam: Present normal affect and normal mood Skin Skin exam: Present warm, dry, intact and normal color Lymphatic Lymphatic Findings: no adenopathy Medical Decision Making Medical Records Medical records reviewed: No I reviewed the patient's medical records. Ben Inquiry Pt receiving controlled substance: No Vital Signs: 07/14/24 13:39 Temperature 97.9 F Temperature Source Oral Pulse Rate [Radial] 84 Respiratory Rate 16 Blood Pressure [Right Arm] 171/92 H Blood Pressure Mean [Right Arm] 118 Blood Pressure Source [Right Arm] Automatic Cuff Blood Pressure Position [Right Arm] Sitting 02 Sat by Pulse Oximetry 96 Oxygen Delivery Method Room Air Orders (Tests/Meds): ORDERS Category Date Time Status XR femur RT 2V Stat Exams 07/14/24 13:56 Ordered XR hip RT 2-3V w/pelvis Stat Exams 07/14/24 13:56 Ordered XR knee RT 3V Stat Exams 07/14/24 13:56 Ordered
[2024-07-14 15:03] VITALS: BP 171/92; PULSE 84; RESP 16; TEMP 36.6; O2SAT 96
== END 2024-07-14 15:04 | disposition home or self-care (01) ==
PROVIDERS: Emergency Provider Nurse Practitioner Family; PCP Family Medicine
DX: S83.91XA Sprain of unspecified site of right knee, initial encounter (principal); M25.561 Pain in right knee; W19.XXXA Unspecified fall, initial encounter
CPT/HCPCS: 73502; 73552; 73562; 99203; 99212; G0463